=== PATIENT | male | born 2005 | race Caucasian/White ===

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

== ENCOUNTER 2023-01-31 13:53 | Outpatient (CLI) | payer OTHER, SELFPAY ==
[2023-01-31 15:09] LABS: Semen Viscosity Not Increased (Not Increa.)
[2023-01-31 15:10] LABS: Liquefaction Semen Complete in 30 min. (<30 minutes); Semen Color Opaque (Grey-opaque); Semen Immotility 30 %; Semen Morphology Result to Follow; Semen Non-Progressive Motility 10 %; Semen Progressive Motility 60 % (>32); Semen Total Motility 70 (>40% (PM+NP)); Sperm Count 76.3 Mil/mL (60-150 million/mL)
[2023-02-07 14:17] LABS: Fructose, Semen 365 mg/dL (150-600)
== END 2023-01-31 13:54 | disposition home or self-care (01) ==
PROVIDERS: PCP Family Medicine; Visit Provider Physician Assistant
DX: N50.89 Other specified disorders of the male genital organs (principal)
CPT/HCPCS: 82757; 88160; 89320

== ENCOUNTER 2023-11-17 15:33 | Emergency (ER) | payer OTHER, SELFPAY ==
[2023-11-17 15:42] VITALS: BP 138/84; PULSE 96; RESP 19; TEMP 37.1; O2SAT 98
[2023-11-17 16:12] LABS: Strep Group A RT-PCR NOT DETECTED (Negative)
[2023-11-17 16:24] LABS: SARS-CoV-2 RNA PCR Negative (Negative)
[2023-11-17 16:26] LABS: Influenza A QL RT-PCR Negative (Negative); Influenza B QL RT-PCR Negative (Negative)
[2023-11-17 16:27] LABS: RSV RNA, RT-PCR Negative (Negative)
--- NOTE | 2023-11-17 16:29 | ED.URI ---
HPI - URI/Sore Throat General Chief Complaint: Upper Respiratory Infection Stated Complaint: sore throat Time Seen by Provider: 11/17/23 15:34 Source: patient and family Mode of arrival: ambulatory Limitations: no limitations History of Present Illness HPI Narrative: This is a 18-year-old male who presents with sinus congestion with ear pain and pressure mainly the right ear with nasal congestion with some drainage with no shortness of breath no audible wheezing no fever chills. MD elicited complaint: sore throat and nasal congestion Onset (ago): day(s) Consistency: constant Severity: mild Related Data Allergies Allergy/AdvReac Type Severity Reaction Status Date / Time ciprofloxacin [From Cipro] Allergy Anaphylaxis Verified 11/17/23 15:40 Review of Systems Review of Systems: All systems reviewed & are unremarkable except as noted in HPI and below PMFSH Past Medical History Medical History Spermatocele of epididymis, multiple Exam Const: General: healthy appearing Nutritional Appearance: well nourished Orientation/consciousness: patient oriented x3 Limitations: no limitations HENMT: Other: Frontal and maxillary sinus tenderness with palpation Neck: Neck: normal visual inspection and no lymphadenopathy Chest: Chest palpation & inspection: normal inspection of the chest Resp: Effort & Inspection: normal respiratory effort Auscultation: clear to auscultation bilaterally Cardio: Rate: regular rate Skin: General skin exam: normal color Rashes: no rashes Course Course Emergency Course: rapid strep COVID influenza and RSV are negative will treat patient with an antibiotic for a sinus infection. Vital Signs Vital signs: Vital Signs Temperature 37.1 C 11/17/23 15:42 Pulse Rate 96 11/17/23 15:42 Respiratory Rate 11/17/23 15:42 Blood Pressure 138/84 11/17/23 15:42 Pulse Oximetry 98 11/17/23 15:42 Oxygen Delivery Room Air 11/17/23 15:42 Temperature 37.1 C 11/17/23 15:42 Pulse Rate 96 11/17/23 15:42 Respiratory Rate 19 11/17/23 15:42 Blood Pressure 138/84 11/17/23 15:42 Pulse Oximetry 98 11/17/23 15:42 Oxygen Delivery Room Air 11/17/23 15:42 MDM - URI/Sore Throat Lab Data Labs: Lab Results 11/17/23 Range/Units 15:34 Influenza A (RT-PCR) Negative (Negative) Influenza B (RT-PCR) Negative (Negative) RSV (RT-PCR) Negative (Negative) SARS-CoV-2 RNA (RT-PCR) Negative (Negative) Group A Strep (PCR) Not detected (Negative) Critical Care Time Critical Care Time Critical Care Time: No Discharge Plan Discharge Clinical Impression: Sinusitis Qualifiers: Sinusitis location: frontal Chronicity: acute Recurrence: non-recurrent Qualified Code(s): J01.10 - Acute frontal sinusitis, unspecified Patient Disposition: Home, Self-Care Condition: Stable Instructions: Antibiotic Form, Sinusitis (ED) Additional Instructions: advised to take antibiotics as prescribed and follow up with primary if symptoms persist or worsen. Prescriptions: New azithromycin [Zithromax Z-Capo] 250 mg tablet See Rx Instructions .ROUTE .COMPLEX Qty: 6 0RF Rx Instructions: For 250 mg dose pack: take 500 mg today (day 1), then 250 mg for 4 days (days 2-5) Follow-up/Referrals: Wilmar Wilkes M.D. [Primary Care Provider] - Time of Disposition: 16:32
[2023-11-17 16:35] VITALS: BP 138/84; PULSE 96; RESP 19; TEMP 37.1; O2SAT 98
== END 2023-11-17 16:35 | disposition home or self-care (01) ==
PROVIDERS: Emergency Provider Emergency Medicine; PCP Family Medicine
DX: J01.10 Acute frontal sinusitis, unspecified (principal); Z20.822 Contact with and (suspected) exposure to COVID-19
CPT/HCPCS: 87637; 87651; 99283

== ENCOUNTER 2024-02-24 13:51 | Emergency (ER) | payer OTHER, SELFPAY ==
--- NOTE | 2024-02-24 14:02 | ED.EAR ---
HPI - Ear Problem General Chief complaint: Ear Stated complaint: bilateral ear pain Source: patient and family History of Present Illness HPI Narrative: PATIENT PRESENTS WITH BILATERAL EAR ACHES MAINLY ON THE RIGHT SIDE THAT STARTED 4 DAYS AGO, DENIES ANY UPPER RESPIRATORY SYMPTOMS, PATIENT WAS TRYING TO CLEAN HIS EAR WITH Q-TIP TODAY AND NOTICED SOME BLOOD ON THE Q-TIP. HE DENIES ANY FEVER, CHILLS, NAUSEA, VOMITING. FEELING DIZZY SOMETIME. Related Data Allergies Allergy/AdvReac Type Severity Reaction Status Date / Time ciprofloxacin [From Cipro] Allergy Anaphylaxis Verified 02/24/24 13:52 Review of Systems Review of Systems: All systems reviewed & are unremarkable except as noted in HPI and below PMFSH Past Medical History Medical History Spermatocele of epididymis, multiple Exam Narrative: GENERAL APPEARANCE: WELL-DEVELOPED, WELL-NOURISHED SKIN: NORMAL COLOR HEAD: NORMOCEPHALIC, NONTRAUMATIC EYES: CLEAR CONJUNCTIVA ENT: OROPHARYNX NORMAL, RIGHT EAR CANAL SHOWED DIFFUSE ERYTHEMA, SLIGHTLY SWOLLEN , NO DISCHARGE. NECK: SUPPLE, NONTENDER CHEST AND RESPIRATORY: AIRWAY PATENT, NO RESPIRATORY DISTRESS, NO ACCESSORY MUSCLE USE HEART: REGULAR RATE/RHYTHM NEUROLOGIC: ALERT AND ORIENTED ?3, OFFICE RECEPTIONIST IS NORMAL TESTED, NO GROSS MOTOR DEFICIT Medical Decision Making Differential Diagnosis Differential Diagnosis: OTITIS EXTERNA VERSUS OTITIS MEDIA Discharge Plan Discharge Clinical Impression: Acute otalgia Patient Disposition: Home, Self-Care Condition: Stable Instructions: Antibiotic Form, Earache (ED) Additional Instructions: RETURN IF SYMPTOMS ARE WORSENING , CALL YOUR FAMILY PHYSICIAN FOR APPOINTMENT, TAKE TYLENOL NEEDED FOR ACHES AND PAIN, CONTINUE HOME MEDICATIONS. Prescriptions: New amoxicillin-pot clavulanate [Augmentin] 500-125 mg tablet 1 tablet PO Q8H Qty: 21 0RF Cortisporin-TC 3.3-3-10-0.5 mg/mL drops,suspension 4 drp EACH EAR TID Qty: 10 0RF Follow-up/Referrals: Wilmar Wilkes M.D. [Primary Care Provider] -
[2024-02-24 14:03] VITALS: BP 123/71; PULSE 73; RESP 19; TEMP 36.7; O2SAT 99
[2024-02-24 14:13] VITALS: BP 123/71; PULSE 73; RESP 19; TEMP 36.7; O2SAT 99
== END 2024-02-24 14:13 | disposition home or self-care (01) ==
PROVIDERS: Emergency Provider Emergency Medicine; PCP Family Medicine
DX: H92.03 Otalgia, bilateral (principal)
CPT/HCPCS: 99283